=== PATIENT | female | born 1990 | race Caucasian/White ===

== ENCOUNTER 2017-05-02 09:30 | Inpatient (IN) | payer OTHER ==
[2017-05-02] MEDS ORDERED: Aspirin Low Dose CHEW TAB* 81 MG PO ONE (09:56)
[2017-05-02] MEDS ORDERED: Adenosine* 3 MG/ML VIAL IV PUSH ONE (09:59)
[2017-05-02] MEDS ORDERED: NS 0.9% 1000 ML* 2,000 ML IV ONE (09:59)
--- NOTE | 2017-05-02 10:32 | RAD ---
HISTORY: Cough, shortness of breath, fever COMPARISONS: September 13, 2014 VIEWS: 1: frontal portable view of the chest at 10:00 AM FINDINGS: LINES AND TUBES: None. CARDIOMEDIASTINAL SILHOUETTE: The cardiomediastinal silhouette is normal for portable technique. PLEURA: The costophrenic angles are sharp. No pleural abnormalities are noted. LUNG PARENCHYMA: There is confluent alveolar opacification of the left mid and lower lung campbell ABDOMEN: The upper abdomen is clear. There is no subphrenic gas. BONES AND SOFT TISSUES: No bone or soft tissue abnormalities are noted. IMPRESSION: LEFT MID AND LOWER LUNG CONSOLIDATION. RECOMMEND FOLLOW-UP UNTIL RESOLUTION TO EXCLUDE UNDERLYING PULMONARY PARENCHYMAL PATHOLOGY.
[2017-05-02 10:47] LABS: Hematocrit 38 % (35-47); Hemoglobin 13.1 g/dl (12.0-16.0); Mean Corpuscular HGB Conc 35 g/dl (31-36); Mean Corpuscular Hemoglobin 30 pg (27-31); Mean Corpuscular Volume 85 fL (80-97); Mean Platelet Volume 8 um3 (7.4-10.4); Red Blood Count 4.44 10^6/ul (4.0-5.4); Red Cell Distribution Width 13 % (10.5-15); White Blood Count 8.5 10^3/ul (3.5-10.8)
[2017-05-02] MEDS ORDERED: Azithromycin IV* 500 MG ADVAN VIAL IVPB ONE (10:49)
[2017-05-02] MEDS ORDERED: cefTRIAXone(*) 1 GM in NS 0.9% 50 ML* 50 ML IVPB ONE (10:49)
[2017-05-02] MEDS ORDERED: Albuterol/Ipratropium NEB.SOL* Albuterol 2.5 MG/Ipratropium 0.5 MG 3 ML INH ONE (10:54)
[2017-05-02] MEDS ORDERED: Acetaminophen TAB* 325 MG PO ONE (10:55)
[2017-05-02 10:59] LABS: Albumin 4.4 g/dL (3.2-5.2); Calcium 9.6 mg/dL (8.6-10.3); EGFR Non-African American 99.5 (>60); Globulin 3.4 g/dL (2-4); Potassium 4.1 mmol/L (3.5-5.0); Total Bilirubin 0.9 mg/dL (0.2-1.0); Total Protein 7.8 g/dL (6.4-8.9)
[2017-05-02 11:00] LABS: Troponin I 0.03 ng/mL (<0.04)
[2017-05-02 11:15] LABS: T4 7.98 mcg/mL (6.09-12.23)
[2017-05-02 11:16] LABS: TSH (Thyroid Stimulating Horm) 0.92 mcIU/mL (0.34-5.60)
[2017-05-02] MEDS ORDERED: Levalbuterol 0.63MG/3ML NEB* UNIT OF USE INH ONE (11:31)
[2017-05-02] MEDS ORDERED: Levalbuterol 1.25MG/0.5ML NEB ONE (11:33)
[2017-05-02] MEDS: Ondansetron TAB* 4 MG PO PRN (12:10)
[2017-05-02] MEDS ORDERED: NS 0.9% 1000 ML* 1,000 ML IV ONE (12:22)
[2017-05-02] MEDS: Acetaminophen TAB* 325 MG PO PRN ×2 (12:23→20:04)
--- NOTE | 2017-05-02 12:51 | PN ---
Subjective Date of Service: 05/02/17 Interval History: Provider informed by Nurse of troponin of 0.2 up from 0.03. Probably demand ischemia because of HR in 220 previously. Currently Chest Pain free and HR in 120s-130s. Will order third troponin and consider echocardiogram if it continues to increase. Objective Active Medications: Acetaminophen (Tylenol Tab*) 650 mg PO Q6H PRN PRN Reason: pain/fever Last Admin: 05/02/17 12:23 Dose: 650 mg Bupropion HCl (Bupropion Xl*) 300 mg PO DAILY [facility] Cetirizine HCl (Zyrtec*) 10 mg PO DAILY [facility] PRN Reason: Protocol Enoxaparin Sodium (Lovenox(*)) 40 mg SUBCUT Q24H [facility] Fluoxetine HCl (Prozac Cap*) 20 mg PO DAILY [facility] Sodium Chloride (Ns 0.9% 1000 Ml*) 1,000 mls @ 100 mls/hr IV PER RATE [facility] Ceftriaxone Sodium 2 gm/ (Sodium Chloride) 100 mls @ 200 mls/hr IVPB Q24H [facility] Azithromycin 250 mg/ Sodium (Chloride) 250 mls @ 250 mls/hr IVPB Q24H [facility] Sodium Chloride (Ns 0.9% 1000 Ml*) 1,000 mls @ 1,000 mls/hr IV ONCE ONE Stop: 05/02/17 13:21 Last Admin: 05/02/17 12:44 Dose: 1,000 mls/hr Ibuprofen (Motrin Tab*) 600 mg PO Q8H PRN PRN Reason: PAIN Ondansetron HCl (Zofran Tab*) 4 mg PO Q6H PRN PRN Reason: NAUSEA Last Admin: 05/02/17 12:10 Dose: 4 mg Prochlorperazine Edisylate (Compazine Inj*) 5 mg IV Q6H PRN PRN Reason: NAUSEA/VOMITING Vital Signs 05/02/17 05/02/17 05/02/17 10:56 11:00 11:30 Pulse Rate 121 122 123 Respiratory 18 29 21 Rate Blood Pressure 92/69 107/62 100/75 (mmHg) O2 Sat by Pulse 96 95 95 Oximetry 05/02/17 11:51 Pulse Rate 126 Respiratory 18 Rate Blood Pressure (mmHg) O2 Sat by Pulse Oximetry Result Diagrams: 05/02/17 09:45 05/02/17 09:45 Assess/Plan/Problems-Billing Assessment:
[2017-05-02] MEDS: Enoxaparin(*) 40 MG/0.4 ML SYR SUBCUT SCH (13:06)
[2017-05-02] MEDS: Ibuprofen TAB* 600 MG PO PRN ×2 (13:06→20:03)
[2017-05-02] MEDS: NS 0.9% 1000 ML* 1,000 ML IV SCH ×2 (13:46→23:45)
[2017-05-02 13:51] LABS: Urine Bilirubin Negative (Negative); Urine Glucose Negative (Negative); Urine Nitrite Negative (Negative)
--- NOTE | 2017-05-02 15:27 | HP ---
CC: Dr. Justine Ngo HISTORY AND PHYSICAL: ADDENDUM: DATE OF ADMISSION: 05/02/17 PRIMARY CARE PROVIDER: Dr. Justine Ngo. HISTORY OF PRESENT ILLNESS: Ms. Strickland is a 26-year-old lady with a past medical history of depression that presented to [facility] with complaints of shortness of breath, cough. She was found to be tachycardic and sent to the emergency room for further evaluation. She was found to be in SVT with heart rate up to 120s, received adenosine and the rhythm broke. She is now in sinus tachycardia. Her workup also revealed lobar pneumonia with left mid and lower lobe lung consolidation. Labs were reviewed and the case was discussed with Godfrey Alba, physician life science research assistant and Jonny Mercedes, nurse practitioner. I am in agreement with the plan at this point to monitor her on telemetry and to treat her pneumonia with ceftriaxone and Zithromax. [id number]/CPS #: [id number] MTDD
[2017-05-02] MEDS: Benzonatate CAP* 100 MG PO PRN ×2 (15:51→22:49)
[2017-05-02] MEDS: guaiFENesin ER TAB 600 MG PO SCH (20:04)
--- NOTE | 2017-05-02 21:57 | HP ---
AMENDED REPORT NOW INCLUDES COSIGNER DESIGNATION - ESIGNED BEFORE ADJUSTMENT ATTENDING PHYSICIAN ADDENDUM NOW INCLUDED ON THIS REPORT CC: Dr. Justine Ngo, [facility] * HISTORY AND PHYSICAL: DATE OF ADMISSION: 05/02/17 PRIMARY CARE PROVIDER: [facility]. ATTENDING PHYSICIAN WHILE IN THE HOSPITAL: Dr. Willow Cox * (DICTATED BY MAXIMINO TERRY) CHIEF COMPLAINT: Dyspnea for 5 days. HISTORY OF PRESENT ILLNESS: Ms. Marco A Contreras is a 26-year-old female with past medical history significant only for anxiety and depression, who comes in with 5 days of dyspnea and productive cough. The patient states that this has been getting worse over the course of 5 days and is worst when she is lying down. The patient states she has cough that is occasionally productive with unknown color of sputum. The patient denies any hemoptysis. The patient states she had a subjective and objective fever over those 5 days, occasionally going above 100 degrees Fahrenheit. The patient states she went to her primary care doctor today because of chest discomfort and was found to have a pulse rate in the 200 range and was sent to the emergency room, where she was found to be in SVT, given adenosine and now, her chest discomfort feels much better. The patient states she now has headache as well. The patient states she gets headache a lot and not unilateral, not accompanied by another symptoms, they "just hurt." The patient has a history of sinus tachycardia of unknown etiology. The patient is on fluoxetine and Wellbutrin for anxiety, but has had no other workup for her chronic sinus tachycardia. The patient is in monogamous sexual relationship and has had multiple other sexual partners in her lifetime. The patient has a history of PID and was tested for HIV at that time and was found to be negative. The patient denies any increase in fatigue, unexplained weight loss, easy bruising, edema, or any other symptoms. PAST MEDICAL HISTORY: Anxiety, depression, allergies, pelvic inflammatory disease. CURRENT MEDICATIONS: 1. Fluoxetine 20 mg p.o. daily. 2. Wellbutrin 300 mg p.o. daily. 3. Zyrtec 10 mg p.o. daily. ALLERGIES: No known allergies. FAMILY HISTORY: Mother is alive and well with a past medical history of diabetes and kidney stones. Father is alive and well with no past medical history. The patient denies family history significant for cardiovascular disease or cancer. SOCIAL HISTORY: The patient denies ever smoking. The patient drinks alcohol on the weekend. The patient denies any illicit drug use. 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 The patient is not , does not have any kids, and has been never . REVIEW OF SYSTEMS: The patient denies abdominal pain, change in urination, diarrhea, weakness, numbness, tingling, altered mental status, history of hepatitis, frequent illnesses. PHYSICAL EXAMINATION GENERAL: The patient is a 26-year-old female, who appears her stated age, sitting on the emergency department stretcher, in moderate distress. VITAL SIGNS: Blood pressure 107/67, heart rate 125, temperature 99, respiratory rate 25, oxygen saturation 97% on room air. HEENT: Head: Normocephalic, atraumatic. Conjunctivae and sclerae, anicteric. Pupils equal, round, and reactive to light. Pharynx, non-erythematous. Mucosal membranes somewhat dry, pale. NECK: No lymphadenopathy. Supple. RESPIRATORY: Absent breath sounds in the left lower lobe. No adventitious breath sounds in any of the lung campbell. Egophony negative. CARDIAC: Tachycardic. No clicks, murmurs, gallops, or rubs. Radial, posterior tibial, and dorsalis pedis pulses 2+ bilaterally, non-bounding. No edema. ABDOMEN: Bowel sounds hyperactive and present in all 4 quadrants. No tenderness to palpation. No abdominal bruits heard on auscultation. No hepatosplenomegaly. NEURO: Cranial nerves II through XII intact. Alert and oriented x3. SKIN: Warm, pink, intact. LABORATORY DATA: White blood cells 8.5, hemoglobin 13.1, hematocrit 38, platelets 277. Sodium 132, potassium 4.1, chloride 98, BUN 95, creatinine 0.71 , glucose 123. Troponin 0.03. TSH 0.92. ACCESSORY DIAGNOSTIC DATA: Chest x-ray, the patient has large opacity in the left lower lobe consistent with consolidation. ELECTROCARDIOGRAM: The patient's electrocardiogram obtained at 09:56 this morning shows SVT, rate 220. Electrocardiogram at 10.21 shows sinus tachycardia in the 120s with no ST-segment changes or other abnormalities. ASSESSMENT/PLAN: Impression: The patient is a 26-year-old generally healthy female with 5 days of increasing dyspnea and 1 day of chest pain and palpations caused by supraventricular tachycardia. Dyspnea appears to be caused by left lower lobe pneumonia. 1. Pneumonia, sepsis: The patient started on ceftriaxone 2 mg daily and azithromycin 500 mg today, followed by 250 mg on subsequent days. The patient has fevers, but no white count. We will test for HIV given abnormal immune response and abnormal age for pneumonia. We will investigate other causes of pulmonary consolidation if the patient does not improve on antibiotics. We will order urine test for Strep pneumo and legionella and sputum culture to possibly get sensitivities and/or find antibiotic choice. 2. Supraventricular tachycardia: The patient is no longer in supraventricular tachycardia, but has sinus tachycardia, which is her normal state. The patient will be monitored on telemetry at least overnight to assess for return in supraventricular tachycardia and have a repeat EKG in the morning. We would recommend electrophysiological workup as an outpatient. 3. Anxiety, depression: The patient will continue fluoxetine and Wellbutrin at home dose. 4. FEN: Normal unrestricted diet. Fluids at 100 mL per hour for blood pressure support. 5. Code status: The patient is a full code. 6. DVT prophylaxis: The patient is moderate risk, will order Lovenox 40mg Subcut Q24H. 7. Disposition: The patient is admitted to telemetry. TIME SPENT: Approximately 60 minutes was spent on this admission, 20 of which were spent obtaining history and physical from the patient. I have discussed this plan my attending physician, Dr. Willow Cox, and she is in agreement with this plan. MAXIMINO TERRY ADDENDUM: DATE OF ADMISSION: 05/02/17 PRIMARY CARE PROVIDER: Dr. Justine Ngo. HISTORY OF PRESENT ILLNESS: Ms. Strickland is a 26-year-old lady with a past medical history of depression that presented to [place] with complaints of shortness of breath, cough. She was found to be tachycardic and sent to the emergency room for further evaluation. She was found to be in SVT with heart rate up to 120s, received adenosine and the rhythm broke. She is now in sinus tachycardia. Her workup also revealed lobar pneumonia with left mid and lower lobe lung consolidation. Labs were reviewed and the case was discussed with MAXIMINO Terry and Jonny Mercedes NP. I am in agreement with the plan at this point to monitor her on telemetry and to treat her pneumonia with ceftriaxone and Zithromax. WILLOW Cox MD [id number]/CPS #: [id number]/CPS #: [id number] ROSI
[2017-05-03] MEDS: Benzonatate CAP* 100 MG PO PRN (02:59)
[2017-05-03] MEDS: Ibuprofen TAB* 600 MG PO PRN ×4 (03:04→22:17)
[2017-05-03] MEDS: Acetaminophen TAB* 325 MG PO PRN ×4 (03:05→20:30)
[2017-05-03] MEDS ORDERED: Levalbuterol 1.25MG/0.5ML NEB INH SCH (04:00)
[2017-05-03 05:50] LABS: Hematocrit 27 % (35-47); Hemoglobin 9.8 g/dl (12.0-16.0); Mean Corpuscular HGB Conc 36 g/dl (31-36); Mean Corpuscular Hemoglobin 31 pg (27-31); Mean Corpuscular Volume 85 fL (80-97); Mean Platelet Volume 8 um3 (7.4-10.4); Red Blood Count 3.22 10^6/ul (4.0-5.4); Red Cell Distribution Width 13 % (10.5-15); White Blood Count 5.7 10^3/ul (3.5-10.8)
[2017-05-03 06:08] LABS: BUN/Creatinine Ratio 10.5 (8-20); Calcium 8.7 mg/dL (8.6-10.3); EGFR African American 164.9 (>60); EGFR Non-African American 128.2 (>60); Potassium 3.4 mmol/L (3.5-5.0)
[2017-05-03] MEDS ORDERED: Potassium Chlor TAB* 20 MEQ TAB.ER PO ONE (07:37)
[2017-05-03] MEDS: guaiFENesin ER TAB 600 MG PO SCH ×2 (08:20→20:30)
[2017-05-03] MEDS: Cetirizine* 10 MG TAB PO SCH (08:20)
[2017-05-03] MEDS: FLUoxetine CAP* 20 MG PO SCH (08:21)
[2017-05-03] MEDS: BuPROPion XL* 300 MG TAB.XL PO SCH (08:21)
[2017-05-03 09:12] LABS: Magnesium 1.8 mg/dL (1.9-2.7)
[2017-05-03] MEDS: Azithromycin IV(*) 250 MG in NS 0.9% 250 ML* 250 ML IVPB SCH (09:18)
[2017-05-03] MEDS: PROCHLORPERAZINE INJ 5 MG/ML 2 ML VIAL IV PRN (09:43)
[2017-05-03] MEDS ORDERED: Magnesium Sulfate 2 GM IV* 2 GM/50 ML BAG IVPB ONE (09:48)
[2017-05-03] MEDS: Enoxaparin(*) 40 MG/0.4 ML SYR SUBCUT SCH (13:22)
--- NOTE | 2017-05-03 14:33 | PN ---
Subjective Date of Service: 05/03/17 Interval History: Patient seen and examined at bedside. Pt states that she is feeling better and is anxious to get home. Pt denies fever, chills, N/V/D. Pt states that she has shortness of breath at times and palpitations. She continues to report a cough and intermittent chest tightness. She states that she had been noticing her heart rate increase while she was sitting on the couch or would wake up with a fast heart rate. 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 She often notices that her heart rate increases to 200's when she is exercising and her resting heart rate is in the 80's. Tele: Sinus tach, rate 90-10's. Up to 150's at times. Family History: Unchanged from Admission Social History: Unchanged from Admission Past Medical History: Unchanged from Admission Objective Active Medications: Acetaminophen (Tylenol Tab*) 650 mg PO Q4H PRN Reason: pain/fever Benzonatate (Tessalon Cap*) 100 mg PO BID PRN Reason: COUGH Bupropion HCl (Bupropion Xl*) 300 mg PO DAILY [facility] Cetirizine HCl (Zyrtec*) 10 mg PO DAILY [facility] Reason: Protocol Enoxaparin Sodium (Lovenox(*)) 40 mg SUBCUT Q24H [facility] Fluoxetine HCl (Prozac Cap*) 20 mg PO DAILY [facility] Guaifenesin (Mucinex*) 600 mg PO BID [facility] Sodium Chloride (Ns 0.9% 1000 Ml*) 1,000 mls @ 100 mls/hr IV PER RATE [facility] Ceftriaxone Sodium 2 gm/ (Sodium Chloride) 100 mls @ 200 mls/hr IVPB Q24H [facility] Azithromycin 250 mg/ Sodium (Chloride) 250 mls @ 250 mls/hr IVPB Q24H [facility] Ibuprofen (Motrin Tab*) 600 mg PO Q6H PRN Reason: PAIN Levalbuterol HCl (Xopenex 1.25 Mg/0.5 Ml Neb.Terese*) 1.25 mg INH Q2H PRN Reason: SOB/WHEEZING Ondansetron HCl (Zofran Tab*) 4 mg PO Q6H PRN Reason: NAUSEA Prochlorperazine Edisylate (Compazine Inj*) 5 mg IV Q6H PRN Reason: NAUSEA/ VOMITING Vital Signs 05/02/17 05/02/17 05/02/17 15:33 18:48 19:39 Temperature 99.0 F 98.6 F Pulse Rate 101 115 Respiratory 16 16 20 Rate Blood Pressure 105/54 118/63 (mmHg) O2 Sat by Pulse 95 99 Oximetry 05/03/17 05/03/17 05/03/17 00:07 03:47 04:03 Temperature 98.4 F 100.1 F Pulse Rate 93 109 Respiratory 20 22 18 Rate Blood Pressure 105/63 127/57 (mmHg) O2 Sat by Pulse 99 95 99 Oximetry 05/03/17 05/03/17 05/03/17 07:54 08:00 08:33 Temperature 98.1 F Pulse Rate 100 86 Respiratory 18 18 18 Rate Blood Pressure 119/74 (mmHg) O2 Sat by Pulse 96 100 Oximetry 05/03/17 05/03/17 11:23 13:26 Temperature 98.2 F Pulse Rate 120 Respiratory 18 Rate Blood Pressure 129/78 (mmHg) O2 Sat by Pulse 93 Oximetry Oxygen Devices in Use Now: None Appearance: NAD, sitting up in bed Ears/Nose/Mouth/Throat: Mucous Membranes Moist Respiratory: Symmetrical Chest Expansion and Respiratory Effort, Clear to Auscultation Cardiovascular: NL Sounds; No Murmurs; No JVD, - - Heart rate tachy Abdominal: NL Sounds; No Tenderness; No Distention Extremities: No Edema Skin: No Rash or Ulcers Neurological: Alert and Oriented x 3, NL Muscle Strength and Tone Lines/Tubes/Other Access: Clean, Dry and Intact Peripheral IV - x2, sites benign Nutrition: Taking PO's Result Diagrams: 05/03/17 05:16 05/03/17 05:16 Microbiology and Other Data: Microbiology 05/02/17 12:30 Legionella Urinary Antigen - Final Urine Negative Legionella Streptococcus pneumoniae Ag Screen - Final Negative S. pneumo Antigen EKG Data: 05/02 EKG @ 09:56 - SVT, rate 220 EKG @ 10:21 - Sinus tach, rate 120's. ST depression I, aVL, V2-6 05/03 EKG - Sinus tach, rate 100. TWI and ST depression in leads I, aVL, V3, 4, 5, 6 Assess/Plan/Problems-Billing Assessment: Ms. Marco A Contreras is a 26 yo female with PMH significant for A/D and PID who presented to the emergency room with from her PCP's office were she presented with complaints of chest tightness and a cough and was found to have a heart rate in the 200's. While in the emergency room she was found to be in SVT and have PNA. - Patient Problems (1) Pneumonia Code(s): J18.9 - PNEUMONIA, UNSPECIFIED ORGANISM SNOMED Code(s): 893279909 Comment: - Low grade fevers, tachycardia - No leukocytosis - HIV negative - Urine antigens for legionella and S. Pneumo negative - Sputum culture pending - Continue ceftriaxone and azithromycin (2) Sepsis Comment: - Meeting SIRS criteria on admisison with tachycardia and tachypnea - Meeting qSofa criteria on admission with 2 points (hypotension and tachypnea) - No longer meeting SIRS criteria - No longer meeting qSofa criteria (3) Elevated troponin Code(s): R74.8 - ABNORMAL LEVELS OF OTHER SERUM ENZYMES SNOMED Code(s): 258999562 Comment: - Troponins 0.20, 0.25, and 0.18 - Suspect this could be related to demand ischemia from the SVT - EKG today shows TWI and ST depression in leads I, AVL, V3, 4, 5, 6 - Will check echo in AM (4) SVT (supraventricular tachycardia) Code(s): I47.1 - SUPRAVENTRICULAR TACHYCARDIA SNOMED Code(s): 5223293 Comment: - Received a dose of adenosine in the ED - Continues to have sinus tachycardia - Should consider electrophysiology consult outpatient (5) Electrolyte abnormality Code(s): E87.8 - OTH DISORDERS OF ELECTROLYTE AND FLUID BALANCE, NEC SNOMED Code(s): 411886795 Comment: - Hypokalcemia - given replacement and will check labs in the AM - Hypomagnesemia - given replacement and will check labs in the AM (6) Anxiety and depression Code(s): F41.8 - OTHER SPECIFIED ANXIETY DISORDERS SNOMED Code(s): 618286956 Comment: - Continue fluoxetine and Wellbutrin (7) DVT prophylaxis Code(s): EMD5605 - SNOMED Code(s): 536241595 Comment: - Lovenox (8) Full code status Code(s): Z78.9 - OTHER SPECIFIED HEALTH STATUS SNOMED Code(s): 420827116 Status and Disposition: OBV to Inpatient. Discharge to home when medically stable.
[2017-05-03] MEDS: Ondansetron TAB* 4 MG PO PRN ×2 (15:27→21:47)
[2017-05-03] MEDS: Levalbuterol 1.25MG/0.5ML NEB INH PRN (17:00)
[2017-05-03] MEDS: guaiFENesin/CODIEN 100MG-10MG* 5 ML UDC PO PRN (22:17)
[2017-05-04] MEDS: Acetaminophen TAB* 325 MG PO PRN ×2 (03:18→09:55)
[2017-05-04] MEDS: Benzonatate CAP* 100 MG PO PRN (03:19)
[2017-05-04] MEDS: Levalbuterol 1.25MG/0.5ML NEB INH PRN ×2 (03:25→09:21)
[2017-05-04] MEDS: Ondansetron TAB* 4 MG PO PRN (05:01)
[2017-05-04] MEDS: guaiFENesin/CODIEN 100MG-10MG* 5 ML UDC PO PRN (05:02)
[2017-05-04] MEDS: Ibuprofen TAB* 600 MG PO PRN ×2 (05:02→12:51)
[2017-05-04 05:33] LABS: Hematocrit 28 % (35-47); Hemoglobin 9.9 g/dl (12.0-16.0); Mean Corpuscular HGB Conc 36 g/dl (31-36); Mean Corpuscular Hemoglobin 31 pg (27-31); Mean Corpuscular Volume 85 fL (80-97); Mean Platelet Volume 7 um3 (7.4-10.4); Red Blood Count 3.24 10^6/ul (4.0-5.4); Red Cell Distribution Width 13 % (10.5-15); White Blood Count 8.7 10^3/ul (3.5-10.8)
[2017-05-04 05:50] LABS: BUN/Creatinine Ratio 6.8 (8-20); EGFR African American 158.5 (>60); EGFR Non-African American 123.2 (>60); Magnesium 1.9 mg/dL (1.9-2.7); Potassium 3.8 mmol/L (3.5-5.0)
[2017-05-04] MEDS: Azithromycin IV(*) 250 MG in NS 0.9% 250 ML* 250 ML IVPB SCH (08:26)
[2017-05-04] MEDS: guaiFENesin ER TAB 600 MG PO SCH (08:26)
[2017-05-04] MEDS: BuPROPion XL* 300 MG TAB.XL PO SCH (08:26)
[2017-05-04] MEDS: Cetirizine* 10 MG TAB PO SCH (08:26)
[2017-05-04] MEDS: PROCHLORPERAZINE INJ 5 MG/ML 2 ML VIAL IV PRN (08:26)
[2017-05-04] MEDS: FLUoxetine CAP* 20 MG PO SCH (08:26)
--- NOTE | 2017-05-04 11:36 | ECHO ---
Patient: CHERRY TREADWELL [facility] Rec#: [id number] : 1990 Date: 05/04/2017 Age: 26y Height: 154.94 cm / 61.0 in Weight: 63.5 kg / 140.0 lbs Sex: F BSA: 1.62 Room#: [facility] Admit Date#: 05/02/2017 Type: Inpatient Referring: Alejandra Joseph NP Reading: Walter Walker MD Radio Announcer: Alejandra Prakash RDCS CC: Justine Ngo DO Transthoracic Echocardiogram Indication: Abnormal EKG, SOB BP: 119/63 HR: 109 Rhythm: Tachycardia Findings History: Shortness of breath. Technical Comments: The study quality is good. Completed at 1115. Left Ventricle: The left ventricular chamber size is normal. There is no left ventricular hypertrophy. Global left ventricular wall motion and contractility are within normal limits. There is normal left ventricular systolic function. The estimated ejection fraction is 60-65%. There is no consistent Doppler evidence of clinically significant diastolic dysfunction. Left Atrium: The left atrial chamber size is normal. Right Ventricle: The right ventricular cavity size is normal. The right ventricular global systolic function is normal. Right Atrium: The right atrial cavity size is normal. Aortic Valve: The aortic valve is trileaflet. There is no evidence of aortic regurgitation. There is no evidence of aortic stenosis. Mitral Valve: The mitral valve leaflets appear normal. There is a trace of mitral regurgitation. There is no evidence of mitral stenosis. Tricuspid Valve: The tricuspid valve leaflets are normal. There is trace tricuspid regurgitation. The right ventricular systolic pressure is estimated at 31 mmHg. No pulmonary hypertension is noted. There is no tricuspid stenosis. Pulmonic Valve: The pulmonic valve appears normal. There is a trace pulmonic regurgitation. There is no pulmonic stenosis. Pericardium: There is no significant pericardial effusion. Aorta: There is no dilatation of the ascending aorta. There is no dilatation of the aortic arch. The aortic root is normal in size. Pulmonary Artery: The main pulmonary artery appears normal. Venous: The inferior vena cava is dilated. There is a greater than 50% respiratory change in the inferior vena cava dimension. Conclusions Global left ventricular wall motion and contractility are within normal limits. There is normal left ventricular systolic function. The estimated ejection fraction is 60-65%. The right ventricular global systolic function is normal. There is no evidence of aortic stenosis. There is a trace of mitral regurgitation. There is trace tricuspid regurgitation. No pulmonary hypertension is noted. There is no significant pericardial effusion. Measurements Name Value Normal Range RVIDd (AP) 2D 2.6 cm (0.9 - 2.6) RVDdMajor (2D) 3.6 cm (2.2 - 4.4) RAd ISD 4CH 4.9 cm (3.4 - 4.9) RA (A4C)W 3.7 cm (2.9 - 4.6) IVSd (2D) 0.7 cm (0.6 - 1) LVPWd (2D) 0.7 cm (0.6 - 1) LVIDd (2D) 4.1 cm (3.6 - 5.4) LVIDs (2D) 2.64 cm - LV FS (2D) 36 % (25 - 45) Aortic Annulus 1.6 cm (1.4 - 2.6) Ao root diameter (2D) 2.3 cm (2.1 - 3.5) Ascending Ao 2.4 cm (2.1 - 3.4) Aortic arch 2.2 cm (1.8 - 3.4) LA dimension (AP) 2D 3 cm (2.3 - 3.8) LAd ISD 4CH 5 cm (2.9 - 5.3) LA ISD 4CH W 4.2 cm (2.5 - 4.5) Name Value Normal Range LA ESV SP 4CH (A/L) 45 ml - LA ESV SP 2CH (A/L) 40 ml - LA ESV BP (A/L) 43 ml - LA ESV BP (A/L) index 26.63 ml/m2 - LA ESV SP 4CH (MOD) 39 ml - LA ESV SP 2CH (MOD) 38 ml - Name Value Normal Range MV E-wave Vmax 1 m/sec - MV deceleration time 192.9 msec - MV A-wave Vmax 0.96 m/sec - MV E:A ratio 1.06 ratio - LV septal e' Vmax 0.06 m/sec - LV lateral e' Vmax 0.17 m/sec - LV E:e' septal ratio 16.67 ratio - LV E:e' lateral ratio 5.88 ratio - Name Value Normal Range AV Vmax 1.8 m/sec - AV VTI 24.4 cm - AV peak gradient 12.96 mmHg - AV mean gradient 6.14 mmHg - LVOT Vmax 1.6 m/sec - LVOT VTI 23.23 cm - LVOT peak gradient 10.71 mmHg - LVOT mean gradient 5.88 mmHg - ROSANNA Vmax 1.28 m/sec - Name Value Normal Range TR Vmax 2 m/sec - TR peak gradient 16 mmHg - RAP 15 mmHg - RVSP 31 mmHg - IVC diameter 2.3 cm - Name Value Normal Range PV Vmax 1.2 m/sec - PV peak gradient 6.1 mmHg -
[2017-05-04] MEDS: Enoxaparin(*) 40 MG/0.4 ML SYR SUBCUT SCH (12:51)
--- NOTE | 2017-05-04 14:42 | CONS ---
CC: Deni Levine MD CARDIOLOGY CONSULTATION: DATE OF CONSULT: 05/04/17 INDICATION FOR CONSULTATION: Supraventricular tachycardia. HISTORY OF PRESENT ILLNESS: The patient is a 26-year-old female with very little past medical histo ry, who was brought to the emergency room because of chest pain and tachycardia. The patient states for the past 4 days, she has been feeling unwell. She has had a productive cough. She has been sh ort of breath. She has had difficulty sleeping at night because of her cough. The patient went to her primary care physician's office who diagnosed her with upper respiratory tract infection. The day, she had more chest discomfort and felt like her heart was racing. She went to her primary care physician's office and they transferred her to the emergency room. The patient was found to be in supraventricular tachycardia at 220 beats per minute. The patient was given adenosine and conve rted to normal sinus rhythm. The patient was admitted to the hospital overnight. Overnight, her la boratory studies were unremarkable. Her troponin levels were mildly elevated at 0.2, 0.25, and 0.18 . This was consistent with her supraventricular tachycardia. The patient did have an echocardiogram today, which demonstrated normal LV size and systolic function. No focal wall motion abnormalities . No valvular abnormalities. Today, the patient feels much better. She is responding well to the a ntibiotics. PAST MEDICAL HISTORY: Significant for anxiety and depression. PAST SURGICAL HISTORY: Prostatectomy, back surgery, trigger finger release. CURRENT MEDICATIONS: 1. Fluoxetine 20 mg a day. 2. Wellbutrin 300 mg a day. 3. Zyrtec 10 mg a day. ALLERGIES: No known drug allergies. FAMILY HISTORY: No family history of early coronary artery disease or arrhythmia. SOCIAL HISTORY: She denies tobacco use. She denies alcohol use on a regular basis. 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 PHYSICAL EXAM: Vital Signs: Height is 5 feet 1 inches, weight is 149 pounds. Temperature 98.1, hea rt rate is 100, blood pressure 135/74, respiratory rate is 16, oxygen saturation 98% on room air. S clerae anicteric. Oropharynx is pink without erythema. Carotids are 2+ without bruits. JVD is nor mal. Thyroid is normal. Cardiac Exam: S1 and S2 without any murmurs, rubs, or gallops. Lungs: Cl ear to auscultation. Extremities: Show no edema. She has 2+ pulses throughout. Neurologic: The p atient is awake, alert, and oriented. She moves all 4 extremities equally. DIAGNOSTIC STUDIES/LAB DATA: Laboratory studies are within normal limits. Chemistries are within no rmal limits except for his troponin level. CBC within normal limits. However, her initial hemoglob in and hematocrit were 13 and 38, hemoglobin and hematocrit today 10 and 28. On arrival, the patient was in a narrow complex tachycardia at 220 beats per minute consistent with reentrant tachycardia of supraventricular tachycardia. EKG is in normal sinus rhythm, showed sinus tachycardia at 105 beats per minute with nonspecific T-wave abnormalities. The patient did have an echocardiogram, which showed normal LV size and systolic function and no brittni vular abnormalities. IMPRESSION: The patient with recent upper respiratory tract infection with presentation of supraven tricular tachycardia. The patient easily converted to normal sinus rhythm with adenosine. The ashley ent has no history of palpitations or tachycardia. RECOMMENDATIONS: For now, my recommendation is to continue treatment of her upper respiratory tract infection. I do not think she needs any beta blockers. I do not think she needs any other cardiac workup. Her minimally elevated troponin levels are secondary to her tachycardia. The patient was seen in followup by her primary care physician. I do not think Cardiology followup is necessary unless the patient has symptoms of tachycardia. [id number]/[facility] #: [id number]
--- NOTE | 2017-05-04 14:46 | PN ---
Subjective Date of Service: 05/04/17 Interval History: Patient seen and examined at bedside. Pt states that she is feeling better today. Continues to have an intermittent cough. Denies fever, chills, shortness of breath, chest discomfort, V/D. Pt feels that she gets some nausea with the antibiotics. Pt has been up and ambulating around in her room and in the hallway. Tele: Sinus rhythm to sinus tachycardia, rate 80-120's. HR noted to occasionally be elevated up to 150's. Family History: Unchanged from Admission Social History: Unchanged from Admission Past Medical History: Unchanged from Admission Objective Active Medications: Acetaminophen (Tylenol Tab*) 650 mg PO Q4H PRN Reason: pain/fever Benzonatate (Tessalon Cap*) 100 mg PO BID PRN Reason: COUGH Bupropion HCl (Bupropion Xl*) 300 mg PO DAILY [facility] Cetirizine HCl (Zyrtec*) 10 mg PO DAILY [facility] Reason: Protocol Enoxaparin Sodium (Lovenox(*)) 40 mg SUBCUT Q24H [facility] Fluoxetine HCl (Prozac Cap*) 20 mg PO DAILY [facility] Guaifenesin (Mucinex*) 600 mg PO BID [facility] Guaifenesin/Codeine Phosphate (Robitussin Ac 100mg-10mg*) 5 ml PO Q6H PRN Reason: COUGH Ceftriaxone Sodium 2 gm/ (Sodium Chloride) 100 mls @ 200 mls/hr IVPB Q24H [facility] Azithromycin 250 mg/ Sodium (Chloride) 250 mls @ 250 mls/hr IVPB Q24H [facility] Ibuprofen (Motrin Tab*) 600 mg PO Q6H PRN Reason: PAIN Levalbuterol HCl (Xopenex 1.25 Mg/0.5 Ml Neb.Terese*) 1.25 mg INH Q2H PRN Reason: SOB/WHEEZING Ondansetron HCl (Zofran Tab*) 4 mg PO Q6H PRN Reason: NAUSEA Prochlorperazine Edisylate (Compazine Inj*) 5 mg IV Q6H PRN Reason: NAUSEA/ VOMITING Vital Signs 05/03/17 05/03/17 05/03/17 16:06 17:02 18:06 Temperature 100.0 F 98.3 F Pulse Rate 119 133 Respiratory 16 16 Rate Blood Pressure 131/72 (mmHg) O2 Sat by Pulse 97 97 Oximetry 05/03/17 05/03/17 05/03/17 19:54 20:00 23:48 Temperature 98.2 F 98.3 F Pulse Rate 106 102 Respiratory 16 16 18 Rate Blood Pressure 121/67 119/63 (mmHg) O2 Sat by Pulse 97 95 Oximetry 05/04/17 05/04/17 05/04/17 03:27 03:42 07:54 Temperature 98.1 F 98.1 F Pulse Rate 93 113 98 Respiratory 16 20 18 Rate Blood Pressure 135/74 122/66 (mmHg) O2 Sat by Pulse 96 98 97 Oximetry 05/04/17 05/04/17 09:12 09:23 Temperature Pulse Rate 97 122 Respiratory 19 16 Rate Blood Pressure (mmHg) O2 Sat by Pulse 98 98 Oximetry Oxygen Devices in Use Now: None Appearance: NAD, sitting up in a chair Ears/Nose/Mouth/Throat: Mucous Membranes Moist Respiratory: Symmetrical Chest Expansion and Respiratory Effort, Clear to Auscultation - , diminished on the left Cardiovascular: NL Sounds; No Murmurs; No JVD, RRR Abdominal: NL Sounds; No Tenderness; No Distention Extremities: No Edema Skin: No Rash or Ulcers Neurological: Alert and Oriented x 3, NL Muscle Strength and Tone Lines/Tubes/Other Access: Clean, Dry and Intact Peripheral IV - site benign Nutrition: Taking PO's Result Diagrams: 05/04/17 05:18 05/04/17 05:18 Microbiology and Other Data: Microbiology 05/02/17 12:30 Legionella Urinary Antigen - Final Urine Negative Legionella Streptococcus pneumoniae Ag Screen - Final Negative S. pneumo Antigen EKG Data: 05/02 EKG @ 09:56 - SVT, rate 220 EKG @ 10:21 - Sinus tach, rate 120's. ST depression I, aVL, V2-6 05/03 EKG - Sinus tach, rate 100. TWI and ST depression in leads I, aVL, V3, 4, 5, 6 Assess/Plan/Problems-Billing Assessment: Ms. Marco A Contreras is a 26 yo female with PMH significant for A/D and PID who presented to the emergency room with tachycardia from her PCP's office were she presented with complaints of chest tightness and a cough and was found to have a heart rate in the 200's. While in the emergency room she was found to be in SVT and have PNA. - Patient Problems (1) Pneumonia Code(s): J18.9 - PNEUMONIA, UNSPECIFIED ORGANISM SNOMED Code(s): 329478239 Comment: - Low grade fevers, tachycardia - No leukocytosis - HIV negative - Urine antigens for legionella and S. Pneumo negative - Blood cultures no growth, day 2 - Sputum culture pending - Continue amoxicillin and azithromycin at discharge (2) Sepsis Comment: - Meeting SIRS criteria on admisison with tachycardia and tachypnea - Meeting qSofa criteria on admission with 2 points (hypotension and tachypnea) - No longer meeting SIRS criteria - No longer meeting qSofa criteria (3) Elevated troponin Code(s): R74.8 - ABNORMAL LEVELS OF OTHER SERUM ENZYMES SNOMED Code(s): 101981094 Comment: - Troponins 0.20, 0.25, and 0.18 - Suspect this could be related to demand ischemia from the SVT - EKG today shows TWI and ST depression in leads I, AVL, V3, 4, 5, 6 - Echo WNL - Cardiology consult, input appreciated (4) SVT (supraventricular tachycardia) Code(s): I47.1 - SUPRAVENTRICULAR TACHYCARDIA SNOMED Code(s): 4588324 Comment: - Received a dose of adenosine in the ED - Continues to have sinus tachycardia - Cardiology consult, input appreciated (5) Electrolyte abnormality Code(s): E87.8 - OTH DISORDERS OF ELECTROLYTE AND FLUID BALANCE, NEC SNOMED Code(s): 973206933 Comment: - Hypokalcemia - Resolved - Hypomagnesemia - Resolved (6) Anxiety and depression Code(s): F41.8 - OTHER SPECIFIED ANXIETY DISORDERS SNOMED Code(s): 302644679 Comment: - Continue fluoxetine and Wellbutrin (7) DVT prophylaxis Code(s): DZD3347 - SNOMED Code(s): 996112734 Comment: - Lovenox (8) Full code status Code(s): Z78.9 - OTHER SPECIFIED HEALTH STATUS SNOMED Code(s): 828651821 Status and Disposition: OBV to Inpatient. Discharge to home when medically stable.
[2017-05-04 17:05] VITALS: BP 115/67
--- NOTE | 2017-05-05 00:25 | DS ---
CC: Teresa Capone NP * DISCHARGE SUMMARY: DATE OF ADMISSION: 05/02/17 DATE OF DISCHARGE: 05/04/17 ATTENDING PHYSICIAN: Cameron Tompkins MD * (dictated by Brittanie Rao NP) PRIMARY CARE PROVIDER: Teresa Capone NP PRIMARY DIAGNOSES: 1. Lower lobe pneumonia. 2. Sepsis, resolved. 3. Supraventricular tachycardia, resolved. SECONDARY DIAGNOSES: 1. Anxiety and depression. 2. Attention deficit hyperactivity disorder. CONSULTATIONS WHILE IN THE HOSPITAL: Dr. Walter Walker with Cardiology. STUDIES WHILE IN THE HOSPITAL: 1. Chest x-ray on 05/02/17. Radiologist's impression: Left mid and lower lung consolidation. Recommend followup until resolution to exclude underlying pulmonary parenchymal pathology. 2. Transthoracic echocardiogram from 05/04/17. Health Care Coach conclusion: Global left ventricular wall motion and contractility are within normal limits. There is normal left ventricular systolic function. The estimated ejection fraction is 60% to 65%. The left ventricular global systolic function is normal. There is no evidence of aortic stenosis. There is a trace of mitral regurgitation. There is a trace tricuspid regurgitation. No pulmonary hypertension is noted. There is no significant pericardial effusion. DISCHARGE MEDICATIONS: New home medications: 1. Acetaminophen 650 mg oral every 4 hours as needed for fever or pain. 2. Amoxicillin 875 mg oral twice daily for 7 more days. 3. Azithromycin 250 mg oral daily for 2 more days. 4. Ibuprofen 600 mg oral every 6 hours as needed for fever or pain. 5. Xopenex 1 to 2 puffs inhalation every 4 hours as needed for shortness of breath. 6. Zofran 4 mg oral every 6 hours as needed for nausea. 7. Mucinex 600 mg oral twice daily. 8. Robitussin AC 100 mg - 10 mg/5 mL oral every 6 hours as needed for cough. Continued home medications: 1. Zyrtec 10 mg oral every day. 2. Wellbutrin 300 mg oral daily. 3. Prozac 20 mg oral daily. HISTORY OF PRESENT ILLNESS/HOSPITAL COURSE: Ms. Marco A Contreras is a 26-year- old female with no significant past medical history who presented to the emergency room with 5 days of increasing dyspnea and one day of chest pain with associated palpitations and was found to have a supraventricular tachycardia and a left lower lobe pneumonia. The Hospitalists were asked to evaluate patient for admission. While in the emergency room, the patient had labs and they were fairly unremarkable. She did have an elevated troponin of 0.03. She had an EKG initially showing a SVT and a rate of 220 followed by EKG showing sinus tachycardia with a rate of 120 after a 6 mg dose of adenosine. The Hospitalists were asked to evaluate the patient for admission. While in the hospital, the patient received ceftriaxone and azithromycin. She had HIV test given the abnormal immune response and the abnormal age for pneumonia. This was negative. The patient had urine antigens for strep pneumo and Legionella that were negative. She was unable to produce a sputum culture. During her stay, she continued to be tachycardic occasionally with heart rates intermittently up into the 150s and 160s when she had been coughing. The patient had her troponins trended and they peaked at 0.25. The patient had a repeat EKG on the second day of admission showing sinus tachycardia and diffuse ST depression. The patient had an echocardiogram showing no significant findings. She was seen in consultation by Dr. Walker with Cardiology who felt that the patient's SVT was likely secondary to her infection and that there was no further workup needed at this time. She did have hypokalemia and hypomagnesia and she received replacements during her stay, this resolved. The patient stated that she was feeling better. She was febrile often in the evening with temp max of 100.2. She was able to walk around in the hallways. She was noted to intermittently be tachycardic with heart rates up into the 150s and 160s after a coughing fit. The patient felt that she was feeling much better today and was anxious to get home today. Ms. Marco A Contreras is stable for discharge, is improved, enough for discharge to home today. Vital signs are as follows, temperature 97.3, heart rate 100, respiratory rate 16, O2 sat 98% on room air, blood pressure 115/61. DISCHARGE PLAN: Ms. Marco A Contreras will be discharged to home. Activity as tolerated. She is encouraged to take it easy and rest. No sprinting until she is recovered from her pneumonia. Regular diet. As far as the patient's pneumonia, she has been continued on azithromycin 250 mg. She has 2 more days left of her course of this. She has been started on amoxicillin 875 mg oral twice daily and she will need 7 more days to complete a 10-day course. As far as the patient's SVT, she was seen in consultation by Cardiology who felt that this was secondary to her pneumonia and they recommend no further Cardiology or electrophysiology followups unless she continues to have a SVT. The patient has been asked to return to the emergency room for any shortness of breath or chest discomfort. The patient should be seen in followup by her primary care provider. She has been asked to call their office to set up an appointment with Teresa Capone NP, on Friday to be seen this coming week. The patient has been continued on her home medications. The patient does report that she occasionally takes medications for ADHD. She was asked to not take this while she is recovering. This is a summarized report of a complex medical history and hospital stay. For further details, please see the entire medical record. TIME SPENT: Time for this discharge was approximately 50 minutes, greater than half of that was spent with the patient and her father discussing discharge plans and instructions. CONDITION ON DISCHARGE: Improved. BRITTANIE KRUEGER NP [id number]/[facility] #: [id number] ROSI
== END 2017-05-04 17:20 | disposition home or self-care (01) | DRG 871 ==
LOC: ED 09:30 → INTOOBSV 10:55 → OBSVTOIN 10:55 → MEDTELE 10:55 → OBSVTOIN 05-03 16:42
PROVIDERS: ADMIT Internal Medicine; ATTEND Hospitalist
DX: A41.9 Sepsis, unspecified organism (principal); J18.1 Lobar pneumonia, unspecified organism; I47.1 Supraventricular tachycardia; E83.42 Hypomagnesemia; I08.1 Rheumatic disorders of both mitral and tricuspid valves; F32.9 Major depressive disorder, single episode, unspecified; R74.8 Abnormal levels of other serum enzymes; E87.6 Hypokalemia; R11.0 Nausea; T36.95XA Adverse effect of unspecified systemic antibiotic, initial encounter; F90.9 Attention-deficit hyperactivity disorder, unspecified type; F41.9 Anxiety disorder, unspecified; R00.0 Tachycardia, unspecified; Z83.3 Family history of diabetes mellitus; Z84.1 Family history of disorders of kidney and ureter; Z72.89 Other problems related to lifestyle
CPT/HCPCS: 36415; 71010; 80048; 80053; 81003; 83036; 83605; 83735; 84436; 84443; 84484; 85025; 86703; 87040; 87899; 93005; 93306; 94640; 94760; A9270-GY; J0153; J0456; J0696; J0780; J1650; J3475; J7615

== ENCOUNTER 2017-05-04 17:58 | Observation (INO) | payer OTHER ==
[2017-05-04] MEDS ORDERED: Adenosine* 3 MG/ML VIAL ONE ×2 (18:17→18:18)
[2017-05-04] MEDS ORDERED: Adenosine* 3 MG/ML VIAL IV PUSH ONE (18:18)
[2017-05-04] MEDS ORDERED: Metoprolol Tartrate TAB* 50 mg PO ONE (18:29)
[2017-05-04] MEDS ORDERED: KCL 20 MEQ/100 ML IVPREMIX* 20 MEQ/100 ML BAG IV ONE (18:31)
[2017-05-04] MEDS ORDERED: Magnesium Sulfate 1 GM IV* 1 GM/100 ML BAG IV ONE (18:31)
[2017-05-04] MEDS ORDERED: guaiFENesin/CODIEN 100MG-10MG* 5 ML UDC PO ONE (19:40)
[2017-05-04] MEDS ORDERED: Potassium Chlor TAB* 20 MEQ TAB.ER PO ONE (19:55)
[2017-05-04] MEDS ORDERED: Benzonatate CAP* 100 MG PO ONE (19:55)
[2017-05-04] MEDS ORDERED: Ondansetron INJ* 2 MG/ML VIAL IV PRN (21:25)
[2017-05-04] MEDS ORDERED: Codeine TAB* 15 MG PO PRN (21:25)
[2017-05-04] MEDS ORDERED: PROCHLORPERAZINE INJ 5 MG/ML 2 ML VIAL IV PRN (21:25)
[2017-05-04] MEDS ORDERED: Acetaminophen TAB* 325 MG PO PRN (21:25)
[2017-05-04] MEDS ORDERED: guaiFENesin/CODIEN 100MG-10MG* 5 ML UDC PO PRN (21:27)
[2017-05-04] MEDS ORDERED: NS 0.9% 1000 ML* 1,000 ML IV SCH (21:30)
--- NOTE | 2017-05-04 21:57 | RAD ---
INDICATION: Pneumonia. COMPARISON: Comparison is made with prior chest x-ray studies from September 13, 2004 and May 02, 2017. TECHNIQUE: Dual-energy PA and lateral views of the chest were obtained. FINDINGS: The heart is within normal limits in size. There is an infiltrate present in the left mid and lower lung field which appears improved from the prior exam. This appears to mainly involve the left upper lobe. There is a new small infiltrate at the right lung base. No pleural effusion is seen. IMPRESSION: 1. LEFT LUNG INFILTRATE IMPROVED FROM THE PRIOR STUDY. 2. NEW SMALL INFILTRATE AT THE RIGHT LUNG BASE.
[2017-05-04] MEDS: guaiFENesin ER TAB 600 MG PO SCH (23:11)
[2017-05-04] MEDS: Levalbuterol 1.25MG/0.5ML NEB INH PRN (23:55)
[2017-05-05] MEDS: Ibuprofen TAB* 600 MG PO PRN ×2 (01:10→07:52)
--- NOTE | 2017-05-05 01:31 | HP ---
CC: Dr. Levine * HISTORY AND PHYSICAL: DATE OF ADMISSION: PRIMARY CARE PROVIDER: Dr. Levine. ATTENDING PHYSICIAN WHILE IN THE HOSPITAL: Dr. Adan Brown * (report dictated by Jonny Mercedes NP) CHIEF COMPLAINT: 1. Palpitations. 2. Rapid heart beat. HISTORY OF PRESENT ILLNESS: Ms. Strickland is a 26-year-old female patient who carries a history of SVT, anxiety, depression, PID, anxiety, seasonal allergies and recently was here in the hospital admitted on 05/02/17 and was here until today, discharged around 1830 today with pretty significant pneumonia on the left side. She was improving. She was monitored on telemetry. She had no episodes of SVT. She came in on 05/02/17 initially with 5-day complaint of having fever, chills, cough, shortness of breath, not feeling well, went to her primary to be evaluated, it was noted there she has an SVT and she was sent to the hospital. She was admitted and placed on IV antibiotics. She has slowly improved over 2 days of IV antibiotics and she was actually discharged and she was seen by Cardiology who felt that the SVT did not need any further workup and she had an echo as well. Unfortunately, though she was going to the pharmacy today. She was at [facility]. She developed an episode where she started having palpitations and feeling unwell and having chest pressure, again she checked her pulse. She noted it was going fast, so she decided to come back to the ER, which she was found to be in SVT again, given adenosine and converted and also started on Lopressor here in the ED unit to help to keep her heart rate under control. Because of recurrent SVT and the fact that she was just here, we were asked to evaluate for admission. PAST MEDICAL HISTORY: 1. Anxiety. 2. Depression. 3. PID. 4. Asthma. 5. Seasonal allergies. PAST SURGICAL HISTORY: Denied. HOME MEDS: According to the discharge summary today include: 1. Robitussin AC 5 cc every 6 hours as needed. 2. Mucinex 600 mg p.o. b.i.d. 3. Zofran 4 mg every 6 hours as needed. 4. Xopenex 1 to 2 puffs inhaled every 4 hours as needed. 5. Motrin 600 mg p.o. every 6 hours as needed. 6. Prozac 20 mg daily. 7. Zyrtec 10 mg p.o. daily. 8. Wellbutrin 300 mg daily. 9. Z-Gerson 250 mg p.o. daily 6 tabs take as directed. 10. Amoxicillin 875 mg p.o. b.i.d. 11. Tylenol 650 mg every 4 hours as needed. ALLERGIES TO MEDICATION: Include no known drug allergies. FAMILY HISTORY: Mother has a history of diabetes, hypertension and kidney stones. Father's history, he is noted to be healthy, was reviewed and noncontributory. SOCIAL HISTORY: The patient does not smoke. She drinks occasionally. She is at [facility]. She is not , does not have children. Surrogate decision maker is her mother. REVIEW OF SYSTEMS: There is no documented fever in the last 24 hours according to our computer system. She denies having any significant weight change. No double vision. No ear discharge. There was no rhinorrhea. No sore throat. No thyroid enlargement. She did not having any chest pressure except she did have some pressure, which was an SVT. She did admit to having palpitations. There was no orthopnea. No nocturnal dyspnea. Denies any shortness of breath. There was no abdominal pain. She does admit to having nausea when taking antibiotics. There is no dysuria. No frequency. There was no seizure and no loss of conscious, no pruritus, and no skin ulcerations. Review of 14 systems completed, all others negative. PHYSICAL EXAMINATION GENERAL: At this time, Ms. Strickland is a 26-year-old female patient. She appears to be well nourished, well developed. She does not appear to be in acute distress. VITAL SIGNS: Blood pressure 114/98, pulse 98, when she came in originally, the pulse was 215, temperature is 98.0, respirations are 20, O2 sat 94% on room air. HEENT: Head is atraumatic and normocephalic. Eyes: EOMs are intact. Sclerae are anicteric and not pale. Throat: Oral mucosa appears to be moist. No oropharyngeal erythema. NECK: Supple. LUNGS: Clear to auscultation bilaterally. No wheezes, rales, or rhonchi. HEART: Sounds S1 and S2. Regular rate and rhythm. No murmurs, rub or gallops. ABDOMEN: Soft, flat, and nontender. Bowel sounds present. EXTREMITIES: Pulses were 2+ throughout. She is able to move all 4 extremities with 5/5 strength. NEUROLOGIC: The patient is awake, alert and oriented x3. Tongue midline. Bench Assembler Battery were equal. No gross focal deficits. SKIN: Grossly intact. DIAGNOSTIC STUDIES/LAB DATA: Labs from this morning, WBC of 8.7, RBC of 3.24, hemoglobin of 9.9, hematocrit 28, platelet count 216. Sodium 144, potassium 3.8 , chloride of 101, bicarb 25, BUN 4, creatinine 0.59, glucose 145. A1c was 5.1 , mag was 1.9. Urine on 05/02/17 was negative. Serology for HIV negative. She did have again an echo done yesterday, which impression EF of 60% to 65%. She had normal LV function. Right global systolic function is normal. No evidence of aortic stenosis, traced mitral regurg, traced tricuspid regurg. No pulmonary hypertension. No significant effusion. She had an EKG done here today, which showed SVT, diffuse ST depression with rate of 205. Old medical records reviewed. ASSESSMENT AND PLAN: Ms. Strickland is a 26-year-old female patient coming into the ER today with recurrence of supraventricular tachycardia and recent pneumonia. She will be admitted under observation status for: 1. Supraventricular tachycardia. At this point, I will repeat her electrolytes in the morning. We will place her on telemetry, monitor her. I am going to go ahead and put her on metoprolol 25 mg p.o. b.i.d. We can consider re-consulting with Dr. Walker in the morning who evaluated the patient today as she may need outpatient Cardiology followup. We will go ahead and place on telemetry and we will continue to followup. 2. Recent pneumonia. She did have antibiotics today, Rocephin and azithromycin. I will restart those for tomorrow and we will hydrate her. I am going to get a repeat 2-view x-ray. 3. Anxiety and depression. Continue with supportive care. 4. Asthma. I did order p.r.n. Xopenex. 5. Seasonal allergies. We will continue with her Zyrtec. 6. DVT prophylaxis. She is moderate risk, but we will place her on SCDs. 7. Fluid, electrolyte, and nutrition. She can have a regular diet. 8. Code status is full code. TIME SPENT: Time spent on the admission 60 minutes, greater than half time spent [id number] with the patient obtaining my history and physical, the other half time was spent going over the plan of care with the patient and implementing plan of care. I did discuss the plan of care with my attending, Dr. Brown, who was in agreement. JONNY MERCEDES, SEED TRUCKER [id number]/[facility] #: [id number] ROSI
[2017-05-05 05:41] LABS: Hematocrit 27 % (35-47); Hemoglobin 9.4 g/dl (12.0-16.0); Mean Corpuscular HGB Conc 35 g/dl (31-36); Mean Corpuscular Hemoglobin 30 pg (27-31); Mean Corpuscular Volume 85 fL (80-97); Mean Platelet Volume 7 um3 (7.4-10.4); Red Blood Count 3.16 10^6/ul (4.0-5.4); Red Cell Distribution Width 13 % (10.5-15); White Blood Count 6.1 10^3/ul (3.5-10.8)
[2017-05-05 05:43] LABS: Add Diff/Slide Review? Slide Review Added; Comments Flag Yes
[2017-05-05 05:55] LABS: BUN/Creatinine Ratio 8.5 (8-20); Calcium 9.1 mg/dL (8.6-10.3); EGFR African American 158.5 (>60); EGFR Non-African American 123.2 (>60); Magnesium 2.1 mg/dL (1.9-2.7); Potassium 4.1 mmol/L (3.5-5.0)
[2017-05-05 06:05] LABS: TSH (Thyroid Stimulating Horm) 1.92 mcIU/mL (0.34-5.60)
[2017-05-05] MEDS: guaiFENesin ER TAB 600 MG PO SCH (08:16)
[2017-05-05] MEDS ORDERED: BuPROPion XL* 300 MG TAB.XL PO SCH (09:00)
[2017-05-05] MEDS ORDERED: Azithromycin TAB* 250 MG PO SCH (09:00)
[2017-05-05] MEDS ORDERED: Metoprolol Tartrate TAB* 25 MG PO SCH (09:00)
[2017-05-05] MEDS ORDERED: FLUoxetine CAP* 20 MG PO SCH (09:00)
[2017-05-05] MEDS ORDERED: Cetirizine* 10 MG TAB PO SCH (09:00)
[2017-05-05] MEDS ORDERED: Amoxicillin PO (*) 875 MG TAB PO SCH (09:00)
[2017-05-05] MEDS: Levalbuterol 1.25MG/0.5ML NEB INH PRN (11:23)
--- NOTE | 2017-05-05 12:32 | ED ---
Angel Gallegos Nikita, scribed for Kwesi Sandhu MD on 05/04/17 at 1901 . Palpitations / Dysrhythmia - HPI Summary HPI Summary: This patient is a 26 year old F presenting to ED with a chief complaint of tachycardia since 1744. Pt was walking to her car after being discharged from 4 th floor telemetry when she felt tachycardic. The patient rates the pain 0/10 in severity. Symptoms aggravated by nothing. Symptoms alleviated by nothing. Patient reports a relieving cough. Pt was in inpatient for tachycardia and PNA. Pt was seen by marketing planning manager previously. PMHx of SVT and PNA. - History of Current Complaint Chief Complaint: EDDysrhythmPalp Time Seen by Provider: 05/04/17 18:15 Hx Obtained From: Patient Onset/Duration: Sudden Onset - 1744, Lasting Hours, Still Present Timing: Constant Character: Fast Aggravating: Nothing Alleviating: Nothing Associated Signs & Symptoms: Negative - Relieving cough - Allergy/Home Medications Allergies/Adverse Reactions: Allergies Allergy/AdvReac Type Severity Reaction Status Date / Time No Known Allergies Allergy Verified 05/02/17 12:20 PMH/Surg Hx/FS Hx/Imm Hx Endocrine/Hematology History: Denies: Hx Diabetes Cardiovascular History: Reports: Other Cardiovascular Problems/Disorders - SVT Denies: Hx Congestive Heart Failure, Hx Hypertension Respiratory History: Reports: Hx Asthma, Hx Pneumonia History: Denies: Hx Renal Disease Sensory History: Reports: Hx Contacts or Glasses Denies: Hx Hearing Aid Opthamlomology History: Reports: Hx Contacts or Glasses Psychiatric History: Reports: Hx Depression Infectious Disease History: No Infectious Disease History: Denies: Traveled Outside the [place] in Last 30 Days - Family History Known Family History: Positive: Hypertension, Diabetes - Social History Alcohol Use: Occasionally Substance Use Type: Reports: None Smoking Status (MU): Never Smoked Tobacco Review of Systems Positive: Other - Tacycardia Positive: Cough - relieving cough All Other Systems Reviewed And Are Negative: Yes Physical Exam Triage Information Reviewed: Yes Vital Signs On Initial Exam: Initial Vitals Temp Pulse Resp BP Pulse Ox 98.0 F 215 18 108/88 100 05/04/17 18:05 05/04/17 18:05 05/04/17 18:05 05/04/17 18:05 05/04/17 18:05 Vital Signs Reviewed: Yes Appearance: Positive: Well-Appearing, No Pain Distress Skin: Positive: Warm, Skin Color Reflects Adequate Perfusion, Diaphoretic - A bit diaphoretic Head/Face: Positive: Normal Head/Face Inspection Eyes: Positive: Normal ENT: Positive: Normal ENT inspection Neck: Positive: Supple, Nontender Respiratory/Lung Sounds: Positive: Clear to Auscultation, Breath Sounds Present Cardiovascular: Positive: Tachycardia Abdomen Description: Positive: Nontender, Soft Bowel Sounds: Positive: Present Musculoskeletal: Positive: Normal Neurological: Positive: Normal, Sensory/Motor Intact, Alert, Oriented to Person Place, Time, CN Intact II-III Psychiatric: Positive: Affect/Mood Appropriate - Ben Coma Scale Coma Scale Total: 15 Diagnostics - Vital Signs Vital Signs Temp Pulse Resp BP Pulse Ox 05/04/17 18:05 98.0 F 215 18 108/88 100 - Laboratory Result Diagrams: 05/05/17 05:06 05/05/17 05:06 Lab Statement: Any lab studies that have been ordered have been reviewed, and results considered in the medical decision making process. - Radiology CXR Radiology Interpretation Completed By: Radiologist - 1. LEFT LUNG INFILTRATE IMPROVED FROM THE PRIOR STUDY. 2. NEW SMALL INFILTRATE AT THE RIGHT LUNG BASE. ED physician reviewed this radiology report and agrees. - EKG 1808 Cardiac Rate: Tachycardia - 205 bpm EKG Rhythm: SVT ST Segment: Non-Specific Re-Evaluation - Re-Evaluation First Eval Re-Evaluation Time: 20:45 Comment: Discussed with pt who agrees to admission. Course/Dx - Course Course Of Treatment: Ms. Marco A Contreras was D/C'd from the hospital after having been diagnosed with pneumonia and an episode of SVT. She went back into SVT in the parking lot and tried to go get her presciptions but it persisted and she came back. She was found to be above 200 and was converted with adenosine 6 mgs. He r K and Mag were both a bit low in this morning's labs and she was replaced. Dr. Walker was consulted and recommended starting a beta diamante transiently. She remained marginal in her vitals while here in the ED and the hospitalists were consulted. No critical care time. - Diagnoses Provider Diagnoses: SVT (supraventricular tachycardia), Pneumonia - Physician Notifications Discussed Care Of Patient With: Walter Walker Time Discussed With Above Provider: 18:28 Instructed by Provider To: Other - Consulted with Dr. Walker about pt who recommends to start her on a beta-diamante. Discussed with Dr. Brown ( hospitalist) at 2054 who will see pt in the ED. Discharge - Discharge Plan Condition: Stable Disposition: ADMITTED TO [facility] documentation as recorded by the Angel rahman Nikita accurately reflects the service I personally performed and the decisions made by me, Kwesi Sandhu MD.
--- NOTE | 2017-05-05 13:53 | PN ---
Subjective Date of Service: 05/05/17 Interval History: Patient seen and examined at bedside. Pt states that she is feeling well and has been up and ambulating in the halls. Denies fever, chills, shortness of breath, chest discomfort, N/V/D. Pt denies any bleeding, such as heavy menses or blood in her urine or stool. Tele: Sinus rhythm - sinus tachycardia, rate 90-110's. Family History: Unchanged from Admission Social History: Unchanged from Admission Past Medical History: Unchanged from Admission Objective Active Medications: Acetaminophen (Tylenol Tab*) 650 mg PO Q4H PRN Reason: FEVER/PAIN Amoxicillin (Amoxicillin Po (*)) 875 mg PO BID [facility] Azithromycin (Zithromax Tab*) 250 mg PO DAILY [facility] Bupropion HCl (Bupropion Xl*) 300 mg PO DAILY [facility] Cetirizine HCl (Zyrtec*) 10 mg PO DAILY [facility] Reason: Protocol Fluoxetine HCl (Prozac Cap*) 20 mg PO DAILY [facility] Guaifenesin (Mucinex*) 600 mg PO BID [facility] Guaifenesin/Codeine Phosphate (Robitussin Ac 100mg-10mg*) 5 ml PO Q6H PRN Reason: COUGH Ibuprofen (Motrin Tab*) 600 mg PO Q6H PRN Reason: FEVER/PAIN Levalbuterol HCl (Xopenex 1.25 Mg/0.5 Ml Neb.Terese*) 1.25 mg INH Q2H PRN Reason: SOB/WHEEZING Metoprolol Tartrate (Lopressor Tab*) 25 mg PO BID [facility] Ondansetron HCl (Zofran Inj*) 4 mg IV Q6H PRN Reason: NAUSEA Prochlorperazine Edisylate (Compazine Inj*) 5 mg IV Q6H PRN Reason: NAUSEA/ VOMITING Vital Signs 05/04/17 05/04/17 05/04/17 21:36 21:43 22:23 Temperature 98.6 F 98.3 F Pulse Rate 93 Respiratory 16 Rate Blood Pressure 118/90 103/85 (mmHg) O2 Sat by Pulse 97 Oximetry 05/04/17 05/04/17 05/05/17 23:57 23:58 04:15 Temperature 98.0 F Pulse Rate 91 97 Respiratory 16 16 Rate Blood Pressure 124/82 (mmHg) O2 Sat by Pulse 99 99 95 Oximetry 05/05/17 05/05/17 07:52 11:26 Temperature 97.3 F Pulse Rate 82 77 Respiratory 16 14 Rate Blood Pressure 123/88 (mmHg) O2 Sat by Pulse 99 97 Oximetry Oxygen Devices in Use Now: None Appearance: NAD, sitting up in a chair Ears/Nose/Mouth/Throat: Mucous Membranes Moist Respiratory: Symmetrical Chest Expansion and Respiratory Effort, Clear to Auscultation Cardiovascular: NL Sounds; No Murmurs; No JVD, RRR - , tachycardic Abdominal: NL Sounds; No Tenderness; No Distention Extremities: No Edema Skin: No Rash or Ulcers Neurological: Alert and Oriented x 3, NL Muscle Strength and Tone Lines/Tubes/Other Access: Clean, Dry and Intact Peripheral IV - site benign Nutrition: Taking PO's Result Diagrams: 05/05/17 05:06 05/05/17 05:06 Assess/Plan/Problems-Billing Assessment: Ms. Marco A Contreras is a 26 yo female with no significant PMH - Patient Problems (1) SVT (supraventricular tachycardia) Code(s): I47.1 - SUPRAVENTRICULAR TACHYCARDIA SNOMED Code(s): 8737847 Comment: - Received a dose of adenosine in the ED - Continues to have sinus tachycardia - Cardiology consult, input appreciated - Continue Metoprolol 25mg BID (2) Electrolyte abnormality Code(s): E87.8 - OTH DISORDERS OF ELECTROLYTE AND FLUID BALANCE, NEC SNOMED Code(s): 840222051 Comment: - Hypokalcemia - Resolved - Hypomagnesemia - Resolved (3) Pneumonia Code(s): J18.9 - PNEUMONIA, UNSPECIFIED ORGANISM SNOMED Code(s): 597262474 Comment: - afebrile, tachycardia - No leukocytosis - HIV negative - Urine antigens for legionella and S. Pneumo negative - Blood cultures no growth, day 2 - Sputum culture pending - Continue amoxicillin and azithromycin (4) Anxiety and depression Code(s): F41.8 - OTHER SPECIFIED ANXIETY DISORDERS SNOMED Code(s): 242927184 Comment: - Continue fluoxetine and Wellbutrin (5) DVT prophylaxis Code(s): MFS7555 - SNOMED Code(s): 205961791 Comment: (6) Full code status Code(s): Z78.9 - OTHER SPECIFIED HEALTH STATUS SNOMED Code(s): 536021420 Status and Disposition: OBV. Stable for discharge to home today.
[2017-05-05 13:59] VITALS: BP 115/73
--- NOTE | 2017-05-06 01:30 | DS ---
CC: Dr. Deni Levine; Teresa Capone NP * DISCHARGE SUMMARY: DATE OF ADMISSION: 05/04/17 DATE OF DISCHARGE: 05/05/17 ATTENDING PHYSICIAN: Dr. Luis Carlos Lutz * (dictated by Brittanie Krueger NP) . PRIMARY CARE PROVIDERS: Dr. Deni Levine and Teresa Capone NP PRIMARY DIAGNOSES: 1. Supraventricular tachycardia, resolved. 2. Recent left lower lobe pneumonia, improving. 3. Recent sepsis, resolved. SECONDARY DIAGNOSES: 1. Anxiety and depression. 2. Attention deficit hyperactivity disorder. CONSULTATIONS WHILE IN THE HOSPITAL: Dr. Walter Walker with Cardiology. STUDIES WHILE IN THE HOSPITAL: Chest x-ray on 05/04/17. Radiologist's impression: Left lung infiltrate improved from prior study. New small infiltrate at the right lung base. DISCHARGE MEDICATIONS: New home medications: Metoprolol tartrate 25 mg oral twice daily. Continued home medications: 1. Acetaminophen 650 mg oral every 4 hours as needed for fever or pain. 2. Amoxicillin 875 mg oral twice daily for 7 more days. 3. Azithromycin 250 mg oral daily for 1 more day. 4. Ibuprofen 600 mg oral every 6 hours as needed for fever or pain. 5. Xopenex 1 to 2 puffs inhalation every 4 hours as needed for shortness of breath. 6. Zofran 4 mg oral every 6 hours as needed for nausea. 7. Mucinex 600 mg oral twice daily. 8. Robitussin A-C 100 mg-10 mg/5 mL oral every 6 hours as needed for cough. 9. Zyrtec 10 mg oral daily. 10. Wellbutrin 600 mg oral daily. 11. Prozac 20 mg oral daily. HISTORY OF PRESENT ILLNESS: Ms. Marco A Contreras is a 26-year-old female with no significant past medical history, who initially presented to the emergency room on 05/02/17 with complaints of 5 days of increasing dyspnea and 1 day of chest pain associated with palpitation. The patient presented to her primary care provider's office for evaluation, where she was found to be significantly tachycardic and was sent to the emergency room. While in the emergency room, the patient was noted to have SVT with a rate of 220 by EKG. She received a dose of adenosine and her heart rate decreased to 125. At that time, the patient was also found to have an elevated troponin of 0.3. The hospitalists evaluated the patient and she was admitted to the hospital. During the hospitalization, the patient received IV ceftriaxone and azithromycin. She had an HIV test that was negative. She had urine antigens for Strep pneumoniae and legionella that were negative. She was unable to produce a sputum culture during her stay. The patient had noted to be continuing tachycardic during her stay with heart rates up into the 150s and 160s when she was having a coughing fit. The patient had her troponins trended and they peaked at 0.25. The patient had a repeat EKG on 05/03/[address] depression. The patient had an echocardiogram ordered, showing no significant findings. Dr. Walker with Cardiology was asked to consult on the patient due to her elevated troponins, SVT and EKG changes. Dr. Walker felt that the patient's elevated troponins and ST depressions were secondary to the patient's SVT and that likely her SVT was secondary to her infection. He felt that she did not need further cardiac workup at this time and that this would resolve and was again due to her infection. The patient had been feeling well. She was mostly afebrile, although she was having low-grade fevers in the evening on the night prior to discharge of 100.2. She was able to walk around in the hallways without any difficulty. No complaints of shortness of breath, palpitations. It was felt that the patient was stable for discharge and she was discharged to home on 05/04/17. The patient reports that when she got up and walked to her car , by the time she got to her car in the parking lot, she was feeling as though her heart was racing. She proceeded to go to the drug store to pick out hand her medications, when she continued to be tachycardiac, she decided to present to the emergency room for further evaluation of her symptoms. While in the emergency room, the patient was again found to be in supraventricular tachycardia. She received a dose of adenosine and her rhythm decreased to a sinus tachycardia. The patient had a repeat chest x-ray showing improvement of the left lung pneumonia and a possible new right basal infiltrate. The hospitalists were asked to evaluate the patient for admission. While in the hospital, the patient was seen again by Dr. Walker, he felt again that her SVT was due to the setting of her infection. The patient has been walking around and tachycardic intermittently. It is to note that at the baseline, the patient often is on the higher side of her heart rate, at resting , she is 80s to 90s. She states that when she exercises, her heart rate gets up into the 200s. The patient continued to feel well. She was afebrile. She had been started on metoprolol last evening for her SVT. It is to note that the patient had slightly low electrolytes yesterday. She received potassium and magnesium replacement while in the emergency room and this has resolved. Ms. Marco A Contreras is stable for discharge to home today. Vital signs are as follows: Temperature 97.9, heart rate 94, respiratory 16, O2 sat 99% on room air, blood pressure 115/73. DISCHARGE PLAN: Ms. Marco A Contreras will be discharged to home. Activity as tolerated. She has been encouraged to rest and to do no strenuous activities such as her usual sprinting and to ease back in a few weeks when she is recovered from this into gentle exercise such as yoga prior to going back to sprinting. Regular diet. As far as the patient's SVT, she has been started on metoprolol tartrate 25 mg oral twice daily. The patient should be continued on this for 4 to 6 weeks. At this time, there is no need for her to be seen in followup with Cardiology or an farmworker chicken farm. If she continues to have a SVT after recovery from her pneumonia, I recommend Cardiology and/or electrophysiology followup. As far as the patient's pneumonia, she has been continued on azithromycin 250 mg for 1 more day to complete her course of her azithromycin. The patient has been continued on Augmentin 875 mg oral twice daily, the patient will need 7 more days to complete her 10-day course of this. As far as the patient's ADHD, she has been asked to stop taking her medication while she is recovering and having intermittent SVT. She states that she does not currently take this daily. She is also going to stop drinking coffee. The patient should be seen in followup by her primary care provider either Teresa Capone NP or Dr. Deni Levine. She has been asked to call their office tomorrow on 05/06/17, to set up a followup appointment and she should be seen in the next week. The patient has been continued on her other usual home medications. The patient has been asked to return to the emergency room for any return of tachycardia that does not resolve, chest pain, shortness of breath. This is a summarized report of a complex medical history and hospital stay. For further details, please see the entire medical record. TIME SPENT: Time for this discharge was approximately 50 minutes, greater than half of that was spent with the patient and family discussing discharge plans and instructions. CONDITION ON DISCHARGE: Stable. BRITTANIE KRUEGER, SULEIMAN [id number]/[facility] #: [id number] ROSI
== END 2017-05-05 14:20 | disposition home or self-care (01) ==
LOC: ED 17:58 → MEDTELE 21:23
PROVIDERS: ADMIT Internal Medicine; ATTEND Internal Medicine
DX: I47.1 Supraventricular tachycardia (principal); R07.9 Chest pain, unspecified; J18.9 Pneumonia, unspecified organism; F41.8 Other specified anxiety disorders; F98.8 Other specified behavioral and emotional disorders with onset usually occurring in childhood and adolescence; Z79.899 Other long term (current) drug therapy; R74.8 Abnormal levels of other serum enzymes
CPT/HCPCS: 36415; 71020; 80048; 83735; 84443; 85025; 93005; 94640; 96361; 96365; 96375; 99284; A9270-GY; G0378; J0153; J2405; J3475; J3480

== ENCOUNTER 2017-06-07 14:32 | Emergency (ER) | payer OTHER ==
[2017-06-07 14:40] VITALS: BP 112/65
--- NOTE | 2017-06-07 14:52 | UC ---
Throat Pain/Nasal José Miguel HPI - HPI Summary HPI Summary: Sore throat worsening for the past 2 days, - History of Current Complaint Chief Complaint: UCRespiratory Stated Complaint: THROAT Time Seen by Provider: 06/07/17 14:42 Hx Obtained From: Patient Hx Last Menstrual Period: 05/23/17 ?: No Onset/Duration: Sudden Onset, Lasting Days - 2, Worse Since - worse today than yesterday Severity: Mild Cough: None Associated Signs & Symptoms: Positive: Negative Related History: Seasonal Allergies - Allergies/Home Medications Allergies/Adverse Reactions: Allergies Allergy/AdvReac Type Severity Reaction Status Date / Time No Known Allergies Allergy Verified 05/02/17 12:20 Home Medications: Home Medications metroNIDAZOLE TAB* [Flagyl 250 mg TAB*] 06/07/17 [History] PMH/Surg Hx/FS Hx/Imm Hx Previously Healthy: Yes - Surgical History Surgical History: None - Family History Known Family History: Positive: Hypertension, Diabetes - Social History Occupation: Employed Full-time Lives: With Family Alcohol Use: Occasionally Substance Use Type: None Smoking Status (MU): Never Smoked Tobacco - Immunization History Most Recent Influenza Vaccination: unknown Most Recent Tetanus Shot: unknown Most Recent Pneumonia Vaccination: never Review of Systems Constitutional: Fever - possible subjective Skin: Negative Eyes: Negative ENT: Negative, Sore Throat Respiratory: Negative Cardiovascular: Negative Gastrointestinal: Negative Genitourinary: Negative Motor: Negative Neurovascular: Negative Musculoskeletal: Negative Neurological: Negative Psychological: Negative Is Patient Immunocompromised?: No All Other Systems Reviewed And Are Negative: Yes Physical Exam Triage Information Reviewed: Yes Appearance: Well-Appearing, No Pain Distress, Well-Nourished Vital Signs: Initial Vital Signs Temp 98.1 F 06/07/17 14:37 Pulse 96 06/07/17 14:37 Resp 18 06/07/17 14:37 BP 112/65 06/07/17 14:37 Pulse Ox 100 06/07/17 14:37 Vital Signs Reviewed: Yes Eye Exam: Normal Eyes: Positive: Conjunctiva Clear ENT Exam: Normal ENT: Positive: Normal ENT inspection, Hearing grossly normal, Pharynx normal, TMs normal. Negative: Nasal congestion, Nasal drainage, Trismus, Muffled/ hoarse voice Dental Exam: Normal Neck exam: Normal Neck: Positive: Supple, Nontender, No Lymphadenopathy Respiratory Exam: Normal Respiratory: Positive: Chest non-tender, Lungs clear, Normal breath sounds, No respiratory distress, No accessory muscle use Cardiovascular Exam: Normal Cardiovascular: Positive: RRR, No Murmur, Pulses Normal, Brisk Capillary Refill Musculoskeletal Exam: Normal Musculoskeletal: Positive: Strength Intact, ROM Intact, No Edema Neurological Exam: Normal Neurological: Positive: Alert, Muscle Tone Normal Psychological Exam: Normal Skin Exam: Normal Diagnostics - Laboratory Diagnostic Studies Completed/Ordered: RST (-) Throat Pain/Nasal Course/Dx - Course Assessment/Plan: allergy med, tylenol, ibuprofen, throat gerda. follow with PCP prn - Differential Dx/Diagnosis Differential Diagnosis/HQI/PQRI: Pharyngitis, URI Provider Diagnoses: Uri Discharge - Discharge Plan Condition: Stable Disposition: HOME Patient Education Materials: Strep Throat (ED), Allergies (ED) Referrals: Bronson Levine MD [Primary Care Provider] - If Needed
== END 2017-06-07 15:00 | disposition home or self-care (01) ==
LOC: UCEAST 14:32
DX: J06.9 Acute upper respiratory infection, unspecified (principal)
CPT/HCPCS: 87651; 99211; G0463